=== PATIENT | female | born 1985 | race Caucasian/White ===

== ENCOUNTER 2017-01-11 07:22 | Emergency (ER) | payer OTHER ==
[~2017-01-11] VITALS: Ht 154.9 cm; Wt 77.2 kg
[~2017-01-11 07:22] MED LIST: ALBUTEROL17 G1 IH; ANTIBIOTIC FOR UTI; BENADRYL25 MG PO; DOXYCYCLINE HY100 M1 PO; FLAGYL500 MG PO; IMITREX6 MG/0.52; PREDNISONE20 MG PO; PRENATAL 1 PLU1 EACH PO; REGLAN10 MG PO; TOPAMAX25 MG; ULTRAM50 MG PO
[2017-01-11] MEDS ORDERED: AUGMENTIN875 MG PO (07:38)
[2017-01-11 08:15] VITALS: BP 146/95
== END 2017-01-11 08:19 | disposition home or self-care (01) ==
LOC: EME 07:22
PROC: 3E0234Z Introduction of Serum, Toxoid and Vaccine into Muscle, Percutaneous Approach (ICD-10-PCS; principal; 2017-01-11)
DX: S61.250A Open bite of right index finger without damage to nail, initial encounter (principal); W55.01XA Bitten by cat, initial encounter; Z23 Encounter for immunization
CPT/HCPCS: 73140; 99281; 99283

== ENCOUNTER 2017-03-21 19:08 | Emergency (ER) | payer OTHER ==
[~2017-03-21] VITALS: Ht 154.9 cm; Wt 80.0 kg
[~2017-03-21 19:08] MED LIST changes: +AUGMENTIN875 MG PO
[2017-03-21 19:37] LABS: HEMATOCRIT 37.3 % (36.0-46.0); MCH 32.4 PG (29.0-34.0); MCHC 34.6 G/DL (30.0-36.0); MCV 93.7 FL (83-99); MEAN PLAT.VOLUME 10.1 uM^3 (9.5-12.4); PLATELET COUNT 370 K/uL (156-360); RBC DIS.WIDTH-CV 11.7 % (11.8-14.6); RBC DIS.WIDTH-SD 40.1 % (39-53); RED BLOOD COUNT 3.98 M/uL (3.80-5.20); WHITE BLOOD COUNT 12.4 K/uL (4.1-10.2)
[2017-03-21 19:48] LABS: CHLORIDE 105 mEq/L (99-109); POTASSIUM 3.9 mEq/L (3.7-5.4); SODIUM 139 mEq/L (136-147)
[2017-03-21 19:49] LABS: GLUCOSE 101 mg/dL (70-99)
[2017-03-21 19:51] LABS: ANION GAP 8 MEQ/L (2-14)
[2017-03-21 19:53] LABS: GFR ESTIMATE (CALCULATED) > 59 mL/min/
[2017-03-21 19:54] LABS: UREA NITROGEN (BUN) 14 mg/dL (9-23)
[2017-03-21 19:57] LABS: TROP-I INTERPRETATION NEGATIVE; TROPONIN-I < 0.01 ng/mL (0.0-0.30)
[2017-03-21 23:17] LABS: TROP-I INTERPRETATION NEGATIVE; TROPONIN-I < 0.01 ng/mL (0.0-0.30)
[2017-03-21 23:32] VITALS: BP 165/75
== END 2017-03-21 23:33 | disposition home or self-care (01) ==
LOC: EME 19:08
PROVIDERS: Nurse Practitioner Family
DX: R00.2 Palpitations (principal); J45.909 Unspecified asthma, uncomplicated; I10 Essential (primary) hypertension; F41.9 Anxiety disorder, unspecified; F32.9 Major depressive disorder, single episode, unspecified; F31.9 Bipolar disorder, unspecified; G43.909 Migraine, unspecified, not intractable, without status migrainosus; Z91.5 Personal history of self-harm; Z87.891 Personal history of nicotine dependence
CPT/HCPCS: 71020; 80048; 84484; 85027; 93005; 99281; 99284